=== PATIENT | female | born 1950 | race Caucasian/White ===

== ENCOUNTER 2019-01-12 08:46 | Inpatient (IN) | payer MEDICARE, BC ==
[~2019-01-12 08:46] MED LIST: CEFAZOLIN 2 Gram 2 GM/50 ML BAG IVPB ONE; FAMOTIDINE 20MG TABLET PO ONE; MECLIZINE 25 MG TABLET PO ONE; METOCLOPRAMIDE 10 MG TABLET PO ONE; VANCOMYCIN HCL 1,000 MG in DEXTROSE 5 % IN WATER 250 ML IVPB ONE
[2019-01-12 09:59] LABS: ABO GROUP O; ANTIBODY SCREEN NEGATIVE (NEGATIVE); RH TYPE NEGATIVE
[2019-01-12] MEDS ORDERED: BUPIVACAINE 0.5% W/EPI MPF 30 ML VIAL SQ ONE (12:47)
[2019-01-12] MEDS ORDERED: ZOLPIDEM TARTRATE 5 MG TABLET PO PRN (13:26)
[2019-01-12] MEDS ORDERED: KETOROLAC 30 MG/ML VIAL IVP PRN ×2 (13:26)
[2019-01-12] MEDS ORDERED: MAGNESIUM HYDROXIDE 30 ML UDC PO PRN (13:26)
[2019-01-12] MEDS ORDERED: HYDROMORPHONE HCL 2 MG/ML VIAL IM PRN (13:26)
[2019-01-12] MEDS ORDERED: TRAMADOL HCL 50 MG TABLET PO PRN (13:26)
[2019-01-12] MEDS ORDERED: ONDANSETRON HCL IV 4 MG/2 ML VIAL IVP PRN (13:26)
[2019-01-12] MEDS ORDERED: ACETAMINOPHEN W/ CODEINE 300MG/60MG TABLET PO PRN ×2 (13:26)
[2019-01-12] MEDS ORDERED: DIPHENHYDRAMINE HCL 25 MG CAPSULE PO PRN (13:26)
[2019-01-12] MEDS ORDERED: AL HYDROX/MAG HYDROX 30ML UD PO PRN (13:26)
[2019-01-12] MEDS ORDERED: BISACODYL 10 MG SUPP RC PRN (13:26)
[2019-01-12] MEDS ORDERED: HYDROCODONE/APAP 10/325 TABLET PO PRN (13:26)
[2019-01-12] MEDS ORDERED: NALOXONE 0.4 MG/1 ML VIAL IVP PRN (13:26)
[2019-01-12] MEDS ORDERED: DEXAMETHASONE 4 MG/ML 1ML VIAL IVP ONE (14:00)
[2019-01-12] MEDS ORDERED: ROPIVACAINE HCL (NAROPIN) /PF 5MG/ML 20ML VIAL IV ONE (14:00)
[2019-01-12] MEDS ORDERED: TRANEXAMIC ACID 1,000 MG/10 ML ML IV ONE ×2 (14:00)
[2019-01-12] MEDS ORDERED: EPHEDRINE SULFATE 50 MG/ML ML IV ONE (14:00)
[2019-01-12] MEDS ORDERED: 0.9 % SODIUM CHLORIDE 10 ML VIAL IVP ONE (14:00)
[2019-01-12] MEDS ORDERED: LIDOCAINE 2% MDV (20MG/ML) 20ML VIAL IV ONE (14:00)
[2019-01-12] MEDS ORDERED: PROPOFOL 10 MG/ML VIAL IV ONE (14:00)
[2019-01-12] MEDS ORDERED: PATIENT OWN MED: VENTOLIN HFA INH PRN (14:34)
[2019-01-12] MEDS ORDERED: ALBUTEROL SULFATE (0.083%) 2.5 MG/3 ML NEB INH PRN (14:35)
[2019-01-12] MEDS: POTASSIUM CHLORIDE/D5-0.9%NACL 20 MEQ/1,000 ML BAG IV SCH ×2 (15:34→18:05)
--- NOTE | 2019-01-12 17:05 | Rehab Evaluation ---
Patient Information - Patient Information Diagnosis: R knee OA Ordered Treatment: PT Evaluate and Treat Status: Initial Evaluation Surgery: Yes (R TKA) Date of Surgery: 01/12/19 Past Medical/Surgical Hx: PAST MEDICAL/SURGICAL HISTORY Past Surgical History BARIATRIC SX TONSILS DENTAL IMPLANTS CSCOPES PMH - Respiratory Hx Asthma Yes Hx Bronchitis Yes: CURRENTLY FINISHING ABX 12-26-18 Hx Dyspnea Yes Hx Pneumonia Yes: LAST TIME Hx Sleep Apnea Yes: IN PAST SLEEPS WITH HEAD RAISED Hx of SOB Yes: WITH EXERTION PMH - Cardiovascular Hx Cardiovascular Disorders Yes Hx Edema Yes Hx Hypertension Yes: CONTROLLED WITH MEDS Hx Irregular Heartbeat Yes: POSSIBLY JUST FINISHED 1 MONTH HALTOR MONITOR Hx Heart Murmur Yes Hx of Mitral Valve Prolapse Yes Exercise Tolerance Poor Hx Transient Ischemic Attacks Yes: MANY (TIA) PMH - Neuro Hx Neurological Disorders Yes Hx Dementia Yes: FORGETFULL, VERY SLEEPY DURING INTERVIEW Hx Dizziness Yes: FALLS ALOT Hx Neuropathy Yes: FEET Hx Parkinson's Disease No Hx Seizures Yes: POSSIBLY IN PROCESS OF SOME TESTING SEIZURE VS ARRHYTHMIA Hx Transient Ischemic Attacks Yes: MANY (TIA) Comment: BELLS PALSY. 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 PMH - GI Hx Gastrointestinal Disorders Yes Hx Nausea/Vomiting Yes: IF SHE OVER EATS PMH - Hx Genitourinary Disorders Yes Hx Bladder Problem Yes: FREQUENCY PMH - Endocrine Hx Endocrine Disorders Yes Hx Diabetes Yes: BEFORE BARIATRIC SX PMH - Musculoskeletal Hx Musculoskeletal Disorders Yes Hx Arthritis Yes: RIGHT KNEE Comment: FOOT DROP LEFT FOOT PMH - Psych Hx Psychiatric Problems Yes Hx Anxiety Yes Hx Depression Yes Major Depressive Episode Yes Comment: BIPOLAR CONTROLLED WITH MEDS LEANS TOWARDS THE MANIC SIDE PMH - Hematology/Oncology Hx Hematology/Oncology Yes Disorders Hx Anemia Yes: MILD Hx Bruising Yes: BRUISES EASILY Premorbid Status: Detail (The patient walked short distances only with wheelchair as her primary form of mobility due to R knee giving out and frequent falls.) Social History: Detail (The patient lives alone in a condo with no steps at the enterance. The bathroom has a walk in shower with grab bars,shower seat and a ledge to step over. The toilet is a standard height toilet. The patient has a 4 wheeled walker (which she states is not good ),a quad cane, wheelchair and commode.) Precautions: [place], Fall, Other (WBAT on the R LE.) - Time With Patient Total Time Spent With Patient (Min): 30 Treatment Procedures: Detail (Initial Evaluation) Subjective Information - Subjective Information Per Patient (The patient had no complaints of pain.) Objective Data - Mental Status Patient Orientation: Oriented x3 - ROM Not within normal limits (The patient's R knee AROM is limited s/p surgery. All other LE AROM is WFL.) - Strength/Tone Not within normal limits (The patient's R LE strength was not tested s/p surgery , however weakness was noted functionally ie: patient was unable to lift B LE's in and out of bed. L LE strength was generally 4- to 4/5 except for ankle musculature which was 2/5. Patient had L LE tremors when fatigued and bilateral UE tremoring.) - Bed Mobility Needs Assist (Moderate PA of 1 with supine to sit and minimal to moderate PA with sit to supine. With use of trapeze the patient required moderate PA to scoot up in bed.) - Transfers Needs Assist (Minimal PA of 1 with sit to stand from higher surface and Mod PA of 2 from low surface.) - Balance Balance Sitting: Good Balance Standing: Fair (The patient required assist of walker to maintain balance.) - Sensation Deficit (bilateral neuropathy.) - Gait Detail (The patient ambulated with 2 wheeled walker a distance 20 feet x 1, 30 feet x 1 WBAT on the R LE with CG of 1, SBA of 1 for safety.) Therapy Assessment - Therapy Assessment Detail (The patient required assistance with bed mobility and assistance with sit to stand transfer from lower surface. The patient ambulated limited distance. Feel the patient is a good candidate for subacute rehab.) Problem List - Problem List Physical Therapy Problem List: Detail (1)Assistance with bed mobility and transfers 2) Decreased bilateral LE strength 3) Decreased R knee AROM as to be expected following surgery 4) Assistance with ambulation and limited ambulation distance.) Goals - Goals Physical Therapy Goals: 1) The patient will require minimal assist with bed mobility. 2) Independent to supervision with all transfers. 3) The patient will ambulate with appropriate assistive device household distances WBAT on the R LE with supervision for safety. 4) The patient will ambulate on stairs with supervision/CG for safety using proper technique. 5) The patient will be independent with TKA HEP. Plan - Plan Physical Therapy Plan: PT 1-2 times a day M-F for gait training, transfer training, bed mobility and instruction in TKA HEP.
[2019-01-12] MEDS: CEFAZOLIN 2 Gram 2 GM/50 ML BAG IVPB SCH (18:05)
[2019-01-12] MEDS: DULERA INH SCH (21:10)
[2019-01-12] MEDS: PREGABALIN (LYRICA) 100MG CAPSULE PO SCH (22:17)
[2019-01-12] MEDS: DOCUSATE SODIUM 100 MG CAPSULE PO SCH (22:20)
[2019-01-12] MEDS: ATORVASTATIN 20 MG TABLET PO SCH (22:20)
[2019-01-12] MEDS: MONTELUKAST SODIUM 10MG TABLET PO SCH (22:20)
[2019-01-12] MEDS: DIAZEPAM 5 MG TABLET PO SCH (22:21)
[2019-01-13] MEDS: DIAZEPAM 5 MG TABLET PO SCH ×2 (00:05→22:11)
[2019-01-13] MEDS: POTASSIUM CHLORIDE/D5-0.9%NACL 20 MEQ/1,000 ML BAG IV SCH ×4 (02:18→22:07)
[2019-01-13] MEDS: CEFAZOLIN 2 Gram 2 GM/50 ML BAG IVPB SCH ×3 (02:21→10:37)
[2019-01-13 06:58] LABS: HEMATOCRIT 26.7 % (35.0-47.0)
[2019-01-13 07:15] LABS: BLOOD UREA NITROGEN 10 mg/dL (8-23); CREATININE 0.7 mg/dL (0.5-0.9); EST GLOMERULAR FILTRATION RATE > 60 mL/min; GLUCOSE,RANDOM 150 mg/dL (74-109)
--- NOTE | 2019-01-13 08:35 | Rehab Evaluation ---
Patient Information - Patient Information Diagnosis: R knee OA Ordered Treatment: OT Evaluate and Treat Status: Initial Evaluation Surgery: Yes (R TKA) Date of Surgery: 01/12/19 Past Medical/Surgical Hx: PAST MEDICAL/SURGICAL HISTORY Past Surgical History BARIATRIC SX TONSILS DENTAL IMPLANTS CSCOPES PMH - Respiratory Hx Asthma Yes Hx Bronchitis Yes: CURRENTLY FINISHING ABX 12-26-18 Hx Dyspnea Yes Hx Pneumonia Yes: LAST TIME Hx Sleep Apnea Yes: IN PAST SLEEPS WITH HEAD RAISED Hx of SOB Yes: WITH EXERTION PMH - Cardiovascular Hx Cardiovascular Disorders Yes Hx Edema Yes Hx Hypertension Yes: CONTROLLED WITH MEDS Hx Irregular Heartbeat Yes: POSSIBLY JUST FINISHED 1 MONTH HALTOR MONITOR Hx Heart Murmur Yes Hx of Mitral Valve Prolapse Yes Exercise Tolerance Poor Hx Transient Ischemic Attacks Yes: MANY (TIA) PMH - Neuro Hx Neurological Disorders Yes Hx Dementia Yes: FORGETFULL, VERY SLEEPY DURING INTERVIEW Hx Dizziness Yes: FALLS ALOT Hx Neuropathy Yes: FEET Hx Parkinson's Disease No Hx Seizures Yes: POSSIBLY IN PROCESS OF SOME TESTING SEIZURE VS ARRHYTHMIA Hx Transient Ischemic Attacks Yes: MANY (TIA) Comment: BELLS PALSY. 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 PMH - GI Hx Gastrointestinal Disorders Yes Hx Nausea/Vomiting Yes: IF SHE OVER EATS PMH - Hx Genitourinary Disorders Yes Hx Bladder Problem Yes: FREQUENCY PMH - Endocrine Hx Endocrine Disorders Yes Hx Diabetes Yes: BEFORE BARIATRIC SX PMH - Musculoskeletal Hx Musculoskeletal Disorders Yes Hx Arthritis Yes: RIGHT KNEE Comment: FOOT DROP LEFT FOOT PMH - Psych Hx Psychiatric Problems Yes Hx Anxiety Yes Hx Depression Yes Major Depressive Episode Yes Comment: BIPOLAR CONTROLLED WITH MEDS LEANS TOWARDS THE MANIC SIDE PMH - Hematology/Oncology Hx Hematology/Oncology Yes Disorders Hx Anemia Yes: MILD Hx Bruising Yes: BRUISES EASILY Premorbid Status: Detail (The patient walked short distances only with wheelchair as her primary form of mobility due to R knee giving out and frequent falls. She walks a short distance to the bathroom with her 4WW. The patient's sister drives her to her appointments and is present when the patient showers.) Social History: Detail (The patient lives alone with her cat in a 4th floor condo with no steps at the entrance and an elevator. The bathroom has a walk in shower with a small lip with 2 suction grab bars and a shower chair. She has a standard height toilet. The patient has a 4 wheeled walker (which she states is not good), a quad cane, wheelchair and commode.) Precautions: [place], Fall, Other (WBAT on the R LE.) - Time With Patient Total Time Spent With Patient (Min): 54 (1 eval, 1 ADL) Treatment Procedures: Detail (OT eval: low complexity) Subjective Information - Subjective Information Per Patient (Pt agreeable to OT eval and Tx, reports that her knee pain is limiting her) Objective Data - Pain Pain Present: Yes (01/06 R knee - RN notified and giving pain meds at bedside) - Mental Status Patient Orientation: Oriented x3 (decreased processing speed and ability to follow directions noted) - Visual Perception Appears within normal limits for therapeutic activities - ROM Within normal limits - Strength/Tone Within normal limits - Coordination Appears within normal limits for therapeutic activities - Bed Mobility Needs Assist (The patient requires MIN assist supine > EOB with MOD v/c for technique) - Transfers Needs Assist (The patient requires MIN-MOD assist for sit-stand from low bedside chair, MIN from elevated EOB. MOD assist for controlled descent stand- sit. CGA and MIN-MOD v/c for stand pivot TFs with FWW. OT educated Pt on safe TF technique and hand and feet placement for increased success.) - Balance Balance Sitting: Fair Balance Standing: Fair - Sensation Intact - Gait Detail - ADL's/IADL's Detail (UB dress with MIN assist for to pull bra around back, closures, and to pull shirt down in back, MIN verbal instruction for technique and shirt orientation. LB dress with MAX assist to don/doff socks, thread pants and brief to knee level 2* pain/inability to reach feet despite foot on stool. Pt able to pull brief to waist level with some OT assist. Educ. Pt on modified tech. for LB dressing with knee pain. Toileting with MIN assist - Pt able to wipe self with CGA for standing wiping and assist to pull pants to waist level.) Therapy Assessment - Therapy Assessment Detail (Pt presents with significantly decreased independence with self cares and functional mobility as well as decreased knowledge of adaptive techniques to increase safety and independence. Pt would benefit from further inpatient OT services and CARL[facility] placement prior to return home.) Problem List - Problem List Physical Therapy Problem List: Detail (1)Assistance with bed mobility and transfers 2) Decreased bilateral LE strength 3) Decreased R knee AROM as to be expected following surgery 4) Assistance with ambulation and limited ambulation distance.) Occupational Therapy Problem List: Detail (1. Decreased independence with total body dressing 2. Decreased independence and safety with functional TFs 3. Decreased activity tolerance needed for safe and indep. self-cares and fxl TFs.) Goals - Goals Physical Therapy Goals: 1) The patient will require minimal assist with bed mobility. 2) Independent to supervision with all transfers. 3) The patient will ambulate with appropriate assistive device household distances WBAT on the R LE with supervision for safety. 4) The patient will ambulate on stairs with supervision/CG for safety using proper technique. 5) The patient will be independent with TKA HEP. Occupational Therapy Goals: 1. Pt will be MOD I with total body dressing using modified tech. and AE (high school foreign language tutor, sock aide, dressing stick) as needed. 2. Pt will complete functional TFs at supervision level using FWW to increase safety and independence with standing self-cares and in prep for fxl mobility. 3. Pt will demo improved endurance to increase safety and indep. with ADLs and fxl TFs. Prognosis - Prognosis Good Plan - Plan Physical Therapy Plan: PT 1-2 times a day M-F for gait training, transfer training, bed mobility and instruction in TKA HEP. Occupational Therapy Plan: Inpatient OT 2-4 days/wk to address self-care and functional TF goals. Thank you for this referral.
[2019-01-13] MEDS: HYDROCODONE/APAP 10/325 TABLET PO PRN ×3 (09:23→18:56)
[2019-01-13] MEDS: DOCUSATE SODIUM 100 MG CAPSULE PO SCH ×2 (09:24→22:11)
[2019-01-13] MEDS: ASPIRIN 81 MG TABEC PO SCH (09:24)
[2019-01-13] MEDS: RIVAROXABAN 10 MG TABLET PO SCH (09:24)
[2019-01-13] MEDS: PREGABALIN (LYRICA) 100MG CAPSULE PO SCH ×2 (09:24→22:11)
[2019-01-13] MEDS: METOPROLOL SUCC 25 MG TAB.ER PO SCH (09:24)
[2019-01-13] MEDS: FERROUS SULFATE 325 MG TAB PO SCH (09:24)
--- NOTE | 2019-01-13 10:00 | Operative Note ---
DATE OF SURGERY: 01/12/2019 PREOPERATIVE DIAGNOSIS: End-stage arthrosis of the right knee. POSTOPERATIVE DIAGNOSIS: End-stage arthrosis of the right knee. OPERATION: Cemented right total knee arthroplasty using [employer] II components with a size 4 cobalt chrome femur, a size 3 stem tibia baseplate, a 9 mm lipped tibial insert, and a 32 mm all plastic patella. Staff Surgeon: Zhao Juarez MD Anesthesia: Spinal. PREPARATION: Chloraprep. INDIVIDUAL CONSIDERATIONS: None. PROCEDURE: The patient was taken to the operating room, placed supine on the operating room table. She had a successful induction of spinal anesthetic. The right lower extremity was prepped and draped in the usual fashion. The patient had a midline approach to the knee. Sharp dissection carried down through skin and subcutaneous tissue. Small veins were coagulated with a Bovie. A medial arthrotomy was performed. The patella was everted and the knee was flexed. The patient had exposed bone almost in all 3 compartments. Fat pad was resected, ACL was sacrificed, provisional anterior meniscectomies were performed. The capsule was released from the medial proximal tibia. The initial femoral regional airline pilot hole was then made freehand. The intramedullary femoral cutting jig was placed. It was cut in 7.0 degrees of valgus and adjusted for rotation and secured with pins for a 10 mm resection. The initial transverse cut was then made. The skin guide was placed in the anterior and posterior regional airline pilot holes. It was found that a size 4 would be appropriate but I needed to translate it anteriorly 2 mm. The anterior and posterior cuts followed by chamfer cuts were made. Osteophytes removed, and a size 4 trial was placed and found to fit well. The tibia was brought forward, and the remainder of the meniscal remnants removed with a Bovie. The extraarticular tibial cutting jig was placed. It was cut in neutral with a 3-degree AP slope. Care was taken to adjust for rotation and flexion using the extraarticular alignment guide and bony landmarks. It was set for a 9 mm resection keyed off the high lateral side and secured with pins. When cutting the tibia, care was taken to preserve the PCL insertion on the tibia. It was found that a size 3 baseplate would fit appropriately after removing osteophytes, and it was adjusted for rotation and secured with pins. With a 9 mm trial and femoral trial, there was excellent motion and stability, ligamentous balance, rotation, and alignment were thought to be normal. Femoral regional airline pilot holes were impacted, and a tri-flange tibial stamp was impacted and these trial components were removed. The patient had a marginal patella but I just cut off about 6-7 mm of bone compensating from bone loss leaving about 13-14 mm. The 3 regional airline pilot holes were drilled for a 32 patella. Tourniquet was let down briefly to get bleeders posteriorly and then placed back up again. The knee was then thoroughly irrigated out with pulsatile Betadine and saline to remove any visual or palpable debris. Bony surfaces were then dried. A size 3 stem tibia baseplate was cemented into place followed by impaction of the 9 mm lipped tibial insert followed by cementing in the size 4 cobalt chrome femur followed by cementing in the 32 mm all plastic patella. The implant surfaces were compressed, excess cement was removed, and after the cement had set, there was excellent motion and stability, ligamentous balance, rotation alignment, and patellofemoral tracking were normal. No lateral release was required. Again thorough irrigation. Tourniquet was let down. Hemostasis was obtained with a Bovie. The capsule was then closed with a running #2 quill. Prior to this, I infiltrated the skin, subcu, and periosteum with 30 mL of 0.5% Marcaine with epinephrine. The subcu was closed with 0 quill, skin was closed with lara. Then 1 g of tranexamic acid was mixed with 30 mL of saline, and it was injected into the knee through a sterile 18-gauge needle, and a sterile bulky compressive dressing was applied. The patient tolerated the procedure well. Needle and sponge counts were correct. Estimated blood loss was minimal, and she was taken back to recovery in good condition. There were no complications. KEHINDE
[2019-01-13] MEDS: DULERA INH SCH ×2 (10:32→21:46)
[2019-01-13] MEDS: PATIENT OWN MED: VRAYLAR 3 MG PO SCH (10:36)
--- NOTE | 2019-01-13 11:13 | Physical Therapy Tx Note ---
Physical Therapy Tx Note - Treatment Note Tolerated: Fair Total Time Spent With Patient: 20 Physical Therapy Tx Note: Detail (The patient was up in chair with respiratory therapist when PT arrived and requesting to go back to bed. The patient required Mod PA of 2 with sit to stand and verbal cues to stand tall. The patient transferred to bed with use of two wheeled walker with CG of 1, SBA of 1 and verbal cues. The patient required maximal PA to lift both LE's with sit to supine. The patient used trapeze and LE's to scoot up in bed with increased effort and maximal PA of 2 to scoot after patient was fatigued. The patient completed TKA exercises all x 3 reps including ankle pumps, quad sets, gluteal sets, hamstring sets, SLR, supine heel slides. The patient was left in bed with bed alarm set and call ligh within reach. Will see patient this pm for ambulation.) Physical Therapy Problem List: Detail (1)Assistance with bed mobility and transfers 2) Decreased bilateral LE strength 3) Decreased R knee AROM as to be expected following surgery 4) Assistance with ambulation and limited ambulation distance.) Physical Therapy Goals: 1) The patient will require minimal assist with bed mobility. 2) Independent to supervision with all transfers. 3) The patient will ambulate with appropriate assistive device household distances WBAT on the R LE with supervision for safety. 4) The patient will ambulate on stairs with supervision/CG for safety using proper technique. 5) The patient will be independent with TKA HEP. Physical Therapy Plan: PT 1-2 times a day M-F for gait training, transfer training, bed mobility and instruction in TKA HEP.
--- NOTE | 2019-01-13 16:12 | Physical Therapy Tx Note ---
Physical Therapy Tx Note - Treatment Note Total Time Spent With Patient: 20 Physical Therapy Tx Note: Detail (The patient was lethargic this pm but was roused easily. The patient required moderate PA with supine to and from sit. The patient required moderate PA of 1 with sit to stand from high surface. The patient ambulated 11 feet x 1 with CG of 1, SBA of 1 with maximal verbal cues to stay in walker. The patient ambulates with short shuffling steps and tends to move walker too far out in front. The patient transferrred back to bed with use of walker and maximal verbal cues for technique. The patient requires mod PA of 1 for sit to supine and was able to scoot up in bed with use of trapeze and LE's to push up. The patient was left in bed with bed alarm set and call light within reach. The patient continues to require assistance with bed mobility, transfers and ambulation. Will continue to progress as tolerated.) Physical Therapy Problem List: Detail (1)Assistance with bed mobility and transfers 2) Decreased bilateral LE strength 3) Decreased R knee AROM as to be expected following surgery 4) Assistance with ambulation and limited ambulation distance.) Physical Therapy Goals: 1) The patient will require minimal assist with bed mobility. 2) Independent to supervision with all transfers. 3) The patient will ambulate with appropriate assistive device household distances WBAT on the R LE with supervision for safety. 4) The patient will ambulate on stairs with supervision/CG for safety using proper technique. 5) The patient will be independent with TKA HEP. Physical Therapy Plan: PT 1-2 times a day M-F for gait training, transfer training, bed mobility and instruction in TKA HEP.
[2019-01-13] MEDS: MONTELUKAST SODIUM 10MG TABLET PO SCH (22:11)
[2019-01-13] MEDS: ATORVASTATIN 20 MG TABLET PO SCH (22:12)
[2019-01-14] MEDS: HYDROCODONE/APAP 10/325 TABLET PO PRN (04:13)
[2019-01-14 06:38] LABS: HEMATOCRIT 25.1 % (35.0-47.0); HEMOGLOBIN 7.5 gm/dl (11.6-16.0)
[2019-01-14 06:51] LABS: BLOOD UREA NITROGEN 13 mg/dL (8-23); CREATININE 0.7 mg/dL (0.5-0.9); EST GLOMERULAR FILTRATION RATE > 60 mL/min; GLUCOSE,RANDOM 115 mg/dL (74-109)
--- NOTE | 2019-01-14 07:25 | RADIOLOGY REPORT ---
EXAM: PORTABLE CHEST HISTORY: REHAB PLACEMENT. VENTRICULAR SHUNT. TECHNIQUE: A single mobile semi-erect view of the chest was obtained. Comparison: None. FINDINGS: The heart projects at the upper limits of normal in size. No pulmonary venous hypertension is seen. No confluent air space opacity is identified nor is there costophrenic angle blunting or pneumothorax. Vertically oriented radiopaque tubing projects on the right extending from the level of the neck down below the diaphragm. This is consistent with ventriculoperitoneal shunt tubing. IMPRESSION: BORDERLINE CARDIOMEGALY WITHOUT PULMONARY VENOUS HYPERTENSION. NO EVIDENCE OF AN ACUTE PULMONARY PROCESS. JOB NUMBER: [id number] MTDD
[2019-01-14] MEDS: DULERA INH SCH ×2 (09:14→22:36)
[2019-01-14] MEDS: DOCUSATE SODIUM 100 MG CAPSULE PO SCH ×2 (09:28→22:04)
[2019-01-14] MEDS ORDERED: HYDROCODONE/APAP 5/325MG TABLET PO PRN ×2 (10:26)
[2019-01-14] MEDS: BENZTROPINE 1 MG PO SCH ×2 (10:28→22:14)
[2019-01-14] MEDS: PATIENT OWN MED: VRAYLAR 3 MG PO SCH (10:28)
[2019-01-14] MEDS ORDERED: DIAZEPAM 5 MG TABLET PO PRN (10:31)
[2019-01-14] MEDS: FERROUS SULFATE 325 MG TAB PO SCH (10:32)
[2019-01-14] MEDS: ASPIRIN 81 MG TABEC PO SCH (10:32)
[2019-01-14] MEDS: PREGABALIN (LYRICA) 100MG CAPSULE PO SCH ×2 (10:33→22:14)
[2019-01-14] MEDS: METOPROLOL SUCC 25 MG TAB.ER PO SCH (10:34)
[2019-01-14] MEDS: RIVAROXABAN 10 MG TABLET PO SCH (10:36)
[2019-01-14 11:29] LABS: IMMED. SPIN CROSSMATCH COMPATIBLE
--- NOTE | 2019-01-14 12:59 | Physical Therapy Tx Note ---
Physical Therapy Tx Note - Treatment Note Tolerated: Poor Total Time Spent With Patient: 30 Physical Therapy Tx Note: Detail (Nursing was administering medication to patient upon HORSE STUD WORKER arrival. Patient was reclined in bed with her eyes closed. Patient transferred supine to and from sit max assist x2. Patient transferred supine to sit max assist x2. Patient transferred sit to and from stand pivot transfer to commode heavy mod assist x2. Patient appeared a little more alert with sitting on the commode. Patient transferred sit to and from stand pivot transfer to bed heavy mod assist x2. Patient required verbal and tactile cuing for hand placement during transfers, and verbal cueing to stand up straight while standing during pivot transfer. Patient transferred sit to supine mod- max assist x2. Patient attempted to scoot up in bed. Patient scooted up in bed max assist x2. Patient performed the following exercises x5-10 reps: attempted quad sets, ankle pumps, heel slides assisted, and SLR assisted. Throughout treatment patient had eyes closed, when cued to open her eyes, only was able to keep them open for short periods of time. Patient appeared lethargic throughout treatment. Patient was left reclined in bed with call light within reach, cryo, and pneumatic intermittent compression.) Physical Therapy Problem List: Detail (1)Assistance with bed mobility and transfers 2) Decreased bilateral LE strength 3) Decreased R knee AROM as to be expected following surgery 4) Assistance with ambulation and limited ambulation distance.) Physical Therapy Goals: 1) The patient will require minimal assist with bed mobility. 2) Independent to supervision with all transfers. 3) The patient will ambulate with appropriate assistive device household distances WBAT on the R LE with supervision for safety. 4) The patient will ambulate on stairs with supervision/CG for safety using proper technique. 5) The patient will be independent with TKA HEP. Prognosis: Good Physical Therapy Plan: PT 1-2 times a day M-F for gait training, transfer training, bed mobility and instruction in TKA HEP.
[2019-01-14 14:18] LABS: IMMED. SPIN CROSSMATCH COMPATIBLE
[2019-01-14] MEDS ORDERED: NALOXONE 0.4 MG/1 ML VIAL IVP ONE (15:05)
[2019-01-14] MEDS: POTASSIUM CHLORIDE/D5-0.9%NACL 20 MEQ/1,000 ML BAG IV SCH (15:44)
[2019-01-14 17:51] LABS: ARTERIAL BLD GAS O2 SATURATION 91.9 % (95-98); ARTERIAL BLOOD GAS BASE EXCESS 4.2 mmol/L (-2 - 3); ARTERIAL BLOOD GAS HCO3 27.2 mmol/L (18-23); ARTERIAL BLOOD GAS PCO2 35.8 mmHg (35-48); ARTERIAL BLOOD GAS pH 7.49 (7.35-7.45); CARBOXYHEMOGLOBIN 2.5 % (0-1.5); O2 HEMOGLOBIN 90.9 % vol (94-99); TOTAL HEMOGLOBIN 9.8 g/dl (11.6-16)
[2019-01-14 17:53] LABS: ALLEN TEST PASS
[2019-01-14 17:55] LABS: METHEMOGLOBIN -1.4 % (0.0-1.5)
[2019-01-14 17:57] LABS: BLOOD UREA NITROGEN 12 mg/dL (8-23); CREATININE 0.7 mg/dL (0.5-0.9); EST GLOMERULAR FILTRATION RATE > 60 mL/min
[2019-01-14 17:59] LABS: GLUCOSE,RANDOM 126 mg/dL (74-109)
[2019-01-14 18:02] LABS: ALB/GLOB RATIO 1.1 (1.1-1.8); ALBUMIN 3.1 g/dL (4.0-5.0); ALKALINE PHOSPHATASE 83 U/L (35-104); ALT/SGPT 12 U/L (<33); AST/SGOT 16 U/L (10.0-35.0)
--- NOTE | 2019-01-14 18:32 | Physical Therapy Tx Note ---
Physical Therapy Tx Note - Treatment Note Total Time Spent With Patient: 50 Physical Therapy Tx Note: Detail (Pt asleep in bed upon arrival, difficult to arouse. Would respond verbally but mumbled; difficulty keeping eyes open, difficulty participating. Max assist of 2 to come from head of bed elevated reclined position to sitting at edge of bed; max assist of 2 for stand pivot transfer to bedside commode. Pt remained very sleepy; required assist to keep head upright while on commode. Remained seated on commode for about 10 minutes , urinated. Max assist for managing clothing and max assist of 2 for stand pivot back to bed, max assist of two for scooting up in bed, although encouraged pt to assist with overhead trapeze and pushing with feet. Reapplied B intermittent compression and cryopack to R knee; call light in reach. Nrsg notified.) Physical Therapy Problem List: Detail (1)Assistance with bed mobility and transfers 2) Decreased bilateral LE strength 3) Decreased R knee AROM as to be expected following surgery 4) Assistance with ambulation and limited ambulation distance.) Physical Therapy Goals: 1) The patient will require minimal assist with bed mobility. 2) Independent to supervision with all transfers. 3) The patient will ambulate with appropriate assistive device household distances WBAT on the R LE with supervision for safety. 4) The patient will ambulate on stairs with supervision/CG for safety using proper technique. 5) The patient will be independent with TKA HEP. Physical Therapy Plan: PT 1-2 times a day M-F for gait training, transfer training, bed mobility and instruction in TKA HEP.
[2019-01-14] MEDS ORDERED: FLUMAZENIL 1MG/10ML VIAL IV ONE (19:58)
[2019-01-14] MEDS: ACETAMINOPHEN 325 MG TAB PO PRN (20:36)
--- NOTE | 2019-01-14 21:23 | Consult ---
Consult Order Detail - Reason for Consult Consult Date: 01/14/19 Consult Order Detail: Medical consulted for concern of change in level of consciousness. Pt has been more sedated since last night, attempted narcan with no improvement in symptoms. - Chief Complaint Chief Complaint: PRIMARY OSTEOARTHRITIS RIGHT KNEE HPI Consult - General Complaint: Change in level of consiousness since last evening -: Hour(s) (18) Consistency: Constant Improves with: None - History of Present Illness Admitting Diagnosis: djd right knee ROS - Neurological Neurological: Reports: Other (sedated, not opening eyes, eating, or speaking) Past Medical History - SOCIAL HISTORY Smoking Status: Former smoker Alcohol Use: Occasional Drug Use: None - RESPIRATORY Hx Asthma: Yes Hx Bronchitis: Yes (CURRENTLY FINISHING ABX 12-26-18) Hx Dyspnea: Yes Hx Pneumonia: Yes (LAST TIME ) Hx Sleep Apnea: Yes (IN PAST SLEEPS WITH HEAD RAISED) - CARDIOVASCULAR Hx Cardio Disorders: Yes Hx Edema: Yes Hx Hypertension: Yes (CONTROLLED WITH MEDS) Hx Irregular Heartbeat: Yes (POSSIBLY JUST FINISHED 1 MONTH HALTOR MONITOR) - NEURO Hx Neuro Disorders: Yes Hx Dizziness: Yes (FALLS ALOT) Hx Parkinson's Disease: No Comment:: BELLS PALSY. 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 - GI Hx GI Disorders: Yes Hx Nausea/Vomiting: Yes (IF SHE OVER EATS) - Hx Genitourinary Disorders: Yes Hx Bladder Problem: Yes (FREQUENCY) - ENDOCRINE Hx Endocrine Disorders: Yes Hx Diabetes: Yes (BEFORE BARIATRIC SX) - MUSCULOSKELETAL Hx Musculoskeletal Disorders: Yes Hx Arthritis: Yes (RIGHT KNEE) Comment:: FOOT DROP LEFT FOOT - PSYCH Hx Psych Problems: Yes Hx Anxiety: Yes Hx Depression: Yes Major Depressive Episode: Yes Comment:: BIPOLAR CONTROLLED WITH MEDS LEANS TOWARDS THE MANIC SIDE - HEMATOLOGY/ONCOLOGY Hx Hematology/Oncology Disorders: Yes Hx Anemia: Yes (MILD) Family Medical History Any Significant Family History?: No Hx HTN: Father, Mother, Children, Brother/Sister H&P Meds - Home Medications and Allergies Allergies Allergy/AdvReac Type Severity Reaction Status Date / Time aripiprazole [From Abilify] AdvReac ATAXIA Verified 12/25/18 11:51 Sulfa (Sulfonamide AdvReac TEMPORARY Verified 12/25/18 11:52 Antibiotics) BLINDNESS Physical Exam - Vital Signs Vital Signs: Vital Signs - Last 24 Hrs Temp Pulse Pulse Resp BP Pulse Ox 01/14/19 20:00 100.5 F H 81 20 152/59 93 L 01/14/19 14:55 99.2 F 75 16 149/55 99 01/14/19 11:11 75 144/66 01/14/19 09:14 79 16 97 01/14/19 08:44 97.8 F 66 14 107/59 14 L 01/14/19 04:14 98.1 F 72 16 98/54 94 L 01/13/19 21:47 89 16 91 L Results - Labs Result Diagrams: 01/14/19 06:29 01/14/19 17:35 Labs Last 24 Hours: Laboratory Results - last 24 hr 01/14/19 01/14/19 01/14/19 06:24 06:29 06:29 Hgb 7.5 L Hct 25.1 L Puncture Site pCO2 pO2 HCO3 Oxyhemoglobin ABG pH ABG O2 Saturation ABG Base Excess Landen Test Carboxyhemoglobin Methemoglobin Total Hemoglobin Actual Respiration Rate FiO2 Sodium 139 Potassium 4.1 Chloride 101 Carbon Dioxide 27.0 Anion Gap 11.0 BUN 13 Creatinine 0.7 Estimated GFR > 60 Random Glucose 115 H Calcium 8.7 L Total Bilirubin AST ALT Alkaline Phosphatase Total Protein Albumin Globulin Albumin/Globulin Ratio ABO Group Cancelled Rh Factor Cancelled Antibody Screen Cancelled Crossmatch Yes 01/14/19 01/14/19 01/14/19 12:39 17:19 17:35 Hgb Hct Puncture Site Left wrist pCO2 35.8 pO2 51.0 L HCO3 27.2 H Oxyhemoglobin 90.9 L ABG pH 7.49 H ABG O2 Saturation 91.9 L ABG Base Excess 4.2 H Landen Test Pass Carboxyhemoglobin 2.5 H Methemoglobin -1.4 L Total Hemoglobin 9.8 L Actual Respiration Rate 12.0 FiO2 Not Reportable Sodium 141 Potassium 4.0 Chloride 101 Carbon Dioxide 27.0 Anion Gap 13.0 BUN 12 Creatinine 0.7 Estimated GFR > 60 Random Glucose 126 H Calcium 9.0 Total Bilirubin 0.80 AST 16 ALT 12 Alkaline Phosphatase 83 Total Protein 6.0 L Albumin 3.1 L Globulin 2.9 Albumin/Globulin Ratio 1.1 ABO Group Rh Factor Antibody Screen Crossmatch Yes Assessment and Plan - Assessment and Plan (1) Change in level of consciousness Current Visit: Yes Status: Acute Base Code: R41.89 - OTH SYMPTOMS AND SIGNS W COGNITIVE FUNCTIONS AND AWARENESS Comment: 01/14/19: -Stat ABG and CMP did not reveal any signs of hypoxia or retention -After review of MAR and timing of change in level of consiousness- correlated with valium administration last evening. (narcan was attempted with no effect) -Ordered flumazenil 0.2mg IV once- per nursing, pt. immediately opened her eyes and is now more alert and responsive. Will continue to monitor. (2) Full code status Current Visit: Yes Status: Acute Base Code: Z78.9 - OTHER SPECIFIED HEALTH STATUS Comment: 01/14/19: -Pt. is a full code
[2019-01-14] MEDS: ATORVASTATIN 20 MG TABLET PO SCH (22:04)
[2019-01-14] MEDS: MONTELUKAST SODIUM 10MG TABLET PO SCH (22:04)
[2019-01-15] MEDS: ACETAMINOPHEN 325 MG TAB PO PRN (07:49)
--- NOTE | 2019-01-15 08:50 | Discharge Summary ---
DATE OF ADMISSION: 01/12/2019 DATE OF DISCHARGE: 01/15/2019 DATE OF SURGERY: 01/12/2019 HISTORY: The patient is a 69-year-old female who presents with end-stage arthrosis of the right knee. She was admitted after right total knee arthroplasty. Postoperatively, she did well. Hospital course is otherwise unremarkable except for the fact that her hemoglobin did drop to 7.5. She has chronic anemia and her preop hemoglobin is only 9.7, so given the fact that she was anemic, we elected to give her 2 units of blood. The plan is to transfer her to a rehab facility. She will need a total of 5 days postop on Xarelto. She received 3 in the hospital, so she will need 2 additional days of Xarelto 10 mg daily. She will be given Gl[place]ora for pain 5/325 one p.o. q.4 h. p.r.n. pain. Her sutures should be removed on 01/26/2019. She has a ALIYAH dressing which should remain intact and replace as necessary for the next 7 days, then 7 days postoperatively the dressing can be discarded. The dressing is waterproof and it is okay to shower over the top of the dressing. Once the dressing is removed, it is okay for the wound to get wet in the shower but should not be submerged in water. She should follow up in my office in 4 weeks. FINAL DIAGNOSIS: End-stage arthrosis of the right knee. SECONDARY DIAGNOSES: 1. Acute operative blood loss anemia. 2. Chronic anemia. OPERATIONS AND PROCEDURES: Cemented right total knee arthroplasty. DISCHARGE ORTHOPEDIC MEDICATIONS: 1. Xarelto 10 mg p.o. daily for 2 additional days. 2. [place]ora 5/325. 3. She should also be given a regular aspirin daily for 30 days after the Xarelto treatment has been completed. DISCHARGE CONDITION: Fair. MTDD
[2019-01-15] MEDS: DULERA INH SCH (09:14)
[2019-01-15] MEDS: RIVAROXABAN 10 MG TABLET PO SCH (10:00)
[2019-01-15] MEDS: DOCUSATE SODIUM 100 MG CAPSULE PO SCH (10:01)
[2019-01-15] MEDS: METOPROLOL SUCC 25 MG TAB.ER PO SCH (10:01)
[2019-01-15] MEDS: ASPIRIN 81 MG TABEC PO SCH (10:01)
[2019-01-15] MEDS: FERROUS SULFATE 325 MG TAB PO SCH (10:01)
[2019-01-15] MEDS: PREGABALIN (LYRICA) 100MG CAPSULE PO SCH (10:11)
[2019-01-15] MEDS: PATIENT OWN MED: VRAYLAR 3 MG PO SCH (10:56)
[2019-01-15] MEDS: BENZTROPINE 1 MG PO SCH (10:58)
--- NOTE | 2019-01-15 13:41 | Occupational Therapy Tx Note ---
Occupational Therapy Tx Note - Treatment Note Tolerated: Fair Total Time Spent With Patient: 42 (1 ADL, 1 Therex, 1 TA) Occupational Therapy Treatment Note: Detail (Pt agreeable to OT Tx, ok to see per NADEEM Palmer. Pt supine upon arrival and attempting to drink water from cup edge , very slow [id number] excursion with MIN tactile and verbal instruction. Supine > EOB MAX assist and Pt resisting with R leg d/t pain. Static sitting EOB with MIN progressing to/from supervision 5 min. EOB core/UB strengthing/ neuro re-ed in prep for fxl TFs and increased dynamic sitting balance for self- cares - crossed arm pulls with therapist, lateral scooting at EOB with MOD assist x7 reps and 3 rest breaks. Sit-stand to modified plantigrade from elevated EOB MIN-MOD of 2 assist and static standing 30 sec, 20 sec, 5 sec, Pt unable to weight shift in standing. MAX of 2 assist EOB > supine.) Occupational Therapy Problem List: Detail (1. Decreased independence with total body dressing 2. Decreased independence and safety with functional TFs 3. Decreased activity tolerance needed for safe and indep. self-cares and fxl TFs.) Occupational Therapy Goals: 1. Pt will be MOD I with total body dressing using modified tech. and AE (churn driller helper, sock aide, dressing stick) as needed. 2. Pt will complete functional TFs at supervision level using FWW to increase safety and independence with standing self-cares and in prep for fxl mobility. 3. Pt will demo improved endurance to increase safety and indep. with ADLs and fxl TFs. Prognosis: Moderate Occupational Therapy Plan: Inpatient OT 2-4 days/wk to address self-care and functional TF goals. Thank you for this referral.
== END 2019-01-15 14:45 | DRG 470 ==
LOC: SUR 08:46 → MEDSURG 13:56
PROVIDERS: ADMIT Orthopaedic Surgery; ATTEND Orthopaedic Surgery
PROC: 30233N1 Transfusion of Nonautologous Red Blood Cells into Peripheral Vein, Percutaneous Approach (ICD-10-PCS; 2019-01-12)
PROC: 0SRC069 Replacement of Right Knee Joint with Oxidized Zirconium on Polyethylene Synthetic Substitute, Cemented, Open Approach (ICD-10-PCS; principal; 2019-01-12 11:00)
DX: M17.11 Unilateral primary osteoarthritis, right knee (principal); G91.9 Hydrocephalus, unspecified; R41.89 Other symptoms and signs involving cognitive functions and awareness; I10 Essential (primary) hypertension; E78.00 Pure hypercholesterolemia, unspecified; G62.9 Polyneuropathy, unspecified; F31.9 Bipolar disorder, unspecified; J45.909 Unspecified asthma, uncomplicated; I34.1 Nonrheumatic mitral (valve) prolapse; G51.0 Bell's palsy; F03.90 Unspecified dementia, unspecified severity, without behavioral disturbance, psychotic disturbance, mood disturbance, and anxiety; R25.1 Tremor, unspecified; Z86.73 Personal history of transient ischemic attack (TIA), and cerebral infarction without residual deficits
CPT/HCPCS: 36600; 71045; 76942; 80048; 80053; 82375; 82803; 85014; 85018; 86850; 86900; 86901; 94640; 97110; 97530; 97535; 99236; C1776; J2310; J3480; J7060